=== PATIENT | female | born 1990 | race Caucasian/White ===

== ENCOUNTER 2022-06-21 17:31 | Emergency (ER) | payer OTHER ==
[~2022-06-21] VITALS: Ht 162.6 cm; Wt 82.1 kg
[2022-06-21 17:42] VITALS: BP_SYST 130
[2022-06-21 18:09] LABS: BASOPHILS % (AUTO) 0.3 % (0.0-2.0); EOSINOPHILS % (AUTO) 0.4 % (0.0-4.0); HEMATOCRIT 39.5 % (36-48); HEMOGLOBIN 13.9 g/dL (12.0-16.0); LYMPHOCYTES # (AUTO) 2.5 K/uL (1.0-5.5); LYMPHOCYTES % (AUTO) 30.2 % (20.5-51.5); MEAN CORPUSCULAR HEMOGLOBIN 32 pg (27-31); MEAN CORPUSCULAR HGB CONC 35 % (32-36); MEAN CORPUSCULAR VOLUME 91 fL (79.0-98.0); MONOCYTES # (AUTO) 0.6 K/uL (0.0-1.0); MONOCYTES % (AUTO) 7.2 % (1.7-9.3); NEUTROPHILS # (AUTO) 5.1 K/uL (1.8-7.7); NEUTROPHILS % (AUTO) 61.9 % (40.0-70.0); PLATELET COUNT (AUTO) 299 K/uL (130-430); RED BLOOD CELL COUNT(AUTO) 4.37 MIL/uL (4.2-6.2); RED CELL DISTRIBUTION WIDTH 12.5 % (9.0-15.0); WHITE BLOOD COUNT (AUTO) 8.3 K/uL (4.8-10.8)
--- NOTE | 2022-06-21 19:17 | NUR ---
RECIEVED REPORT FROM [facility] STATED EKG WAS NORMAL ADV NO MEDS ORDERED PT HAS HISTORY OF ANXIETY. VS ARE WITHIN NORMAL LIMITS PT IS IN BED WITH BED LOCKED LOWERED AND REAILS UP. PT RECIEVED 2
[2022-06-21 19:24] LABS: CALCIUM 8.8 mg/dL (8.4-11.0); POTASSIUM 3.8 mmol/L (3.5-5.1)
[2022-06-21 19:25] LABS: CREATININE 0.83 mg/dL (0.55-1.30)
--- NOTE | 2022-06-21 19:34 | NUR ---
PT IS AOX4 DENIES ANY CHEST PAIN OR LEFT ARM PAIN. PT ALSO STATED SHE IS TAKING A WEEKLY WEIGHT LOSS INJECTION SERMORELIN. WILL CONTINUE TO MONITOR
[2022-06-21 19:39] LABS: ALBUMIN 3.8 g/dL (3.4-4.8); FREE T4 (FREE THYROXINE) 1.1 ng/dl (0.8-1.5); THYROID STIMULATING HORMONE 1.59 uIu/mL (0.36-3.74); TOTAL BILIRUBIN 0.1 mg/dL (0.0-1.0)
[2022-06-22 05:25] VITALS: BP_SYST 124
== END 2022-06-21 20:00 | disposition home or self-care (01) ==
LOC: SED 17:31
DX: R07.89 Other chest pain (principal); K21.9 Gastro-esophageal reflux disease without esophagitis; Z79.899 Other long term (current) drug therapy
CPT/HCPCS: 36415; 71045; 80053; 84439; 84443; 84484; 85025; 93005; 99285